=== PATIENT | male | born 2000 | race Caucasian/White ===

== ENCOUNTER 2024-10-04 14:26 | Emergency (ER) | payer OTHER, SELFPAY ==
--- NOTE | 2024-10-04 14:32 | ED_ITS ---
HPI - URI/Sore Throat General Chief Complaint: Upper Respiratory Infection Stated Complaint: flu like symptoms Time Seen by Provider: 10/04/24 14:31 Source: patient Mode of arrival: ambulatory Limitations: no limitations History of Present Illness HPI Narrative: Patient is a 24-year-old male who presents with cough, congestion, sore throat, fever, body aches, headache, fatigue, and nausea that started yesterday at 9:00 a.m.. Patient has taken [place] cold flu. Reports high his fever was 102 at 1:00 p.m. today. Denies any vomiting, diarrhea. Related Data Allergies Allergy/AdvReac Type Severity Reaction Status Date / Time No Known Allergies Allergy Verified 10/04/24 14:44 Review of Systems Review of Systems: All systems reviewed & are unremarkable except as noted in HPI and below Constitutional: Constitutional: Reports body ache(s), Denies chills, Reports fatigue, Reports fever(s), Reports headache(s), Denies malaise and Denies weakness Eyes: Eyes: Denies blurry vision, Denies itchy eyes and Denies loss of vision ENT: Denies otalgia, Denies headache(s), Reports nasal congestion, Denies sinus pain and Reports sore throat Cardiovascular: Cardiovascular: Denies chest pain, Denies irregular heart rhythm and Denies dyspnea Respiratory: Respiratory: Reports cough and Denies dyspnea Gastrointestinal: Gastrointestinal: Denies abdominal pain, Denies diarrhea, Reports nausea and Denies vomiting Musculoskeletal: Musculoskeletal: Denies back pain, Denies myalgias and Denies arthralgias Integumentary/Breasts: Skin/Breast: Denies pruritus and Denies rash Neurologic: Denies headache(s), Denies loss of vision and Denies weakness Psychiatric: Psychiatric: Reports no additional psychiatric complaints Endocrine: Endocrine: Denies fatigue Allergic/Immunologic: Allergic/Immunologic: Denies itchy eyes PMFSH Comments At time of signature, agree with nursing past medical, surgical, social and family history. There is no relevant family history pertinent to the presenting complaint. Exam Const: General: cooperative, healthy appearing, comfortable, no acute distress and well nourished Nutritional Appearance: well nourished Orientation/consciousness: patient oriented x3 Limitations: no limitations HENMT: Head: normal to inspection, normocephalic and atraumatic Ears: hearing grossly normal bilaterally, external ears normal, TM's normal bilaterally, EAC's normal and no periauricular adenopathy Face/Nose/Sinus: Normal external nose present, Abnormal mucous membranes and turbinates present erythematous bilateral and diffuse, normal facial exam, sinuses nontender and face symmetric Face and sinus: normal facial exam, sinuses nontender and face symmetric Mouth: Yes Normal oral and palatal mucosa present, Yes lip normal, Yes tongue normal, Yes Normal salivary glands and ducts present, Yes oropharynx normal and Yes moist mucous membranes Teeth and gingiva: dentition normal Throat: posterior oropharynx normal, tonsils normal, uvula midline and postnasal drainage Eyes: General: appearance normal, both eyes and all related structures Alignment and Position: alignment normal and position normal Periorbital: periorbital findings normal Eyelids: eyelids normal Pupils: Equal, round and reactive pupils present Neck: Neck: normal visual inspection, full ROM, no lymphadenopathy and supple Chest: Chest palpation & inspection: normal inspection of the chest and normal palpation of entire chest wall Resp: Effort & Inspection: normal respiratory effort and able to speak in complete sentences Auscultation: clear to auscultation bilaterally, no crackles, no rales, no rhonchi and no wheezes Cardio: Rate: regular rate Rhythm: regular rhythm Heart sounds: S1 normal heart sound present and S2 normal heart sound present GI: Inspection: normal to inspection Skin: General skin exam: normal color and no rashes or lesions noted Neuro: General: patient oriented x3 and moves all extremities Cranial nerves: Yes Equal, round and reactive pupils present Speech: normal speech Gait exam (Neuro): Normal gait present Extrem: General: normal to inspection, full ROM and no edema Psych: Appearance: grossly normal and well kempt Mental Status: mental status grossly normal Speech and movement: Normal speech and movement present Affect: normal affect Attitude: cooperative Thought process: Normal thought process present Course Course Emergency Course: Discharge instructions reviewed with patient, as well as provided in writing per nursing staff. The instructions also include specific and strict return/GO TO THE ER as well as f/u information. All questions have been answered, and the patient deny any further questions with discharge and discharge plan. Portions of this record may have been created with voice recognition software Level of Care: Express Care Visit Vital Signs Vital signs: Vital Signs Temperature 36.9 C 10/04/24 14:42 Pulse Rate 90 10/04/24 14:42 Respiratory Rate 18 10/04/24 14:42 Blood Pressure 117/56 L 10/04/24 14:42 Pulse Oximetry 98 10/04/24 14:42 Oxygen Delivery Room Air 10/04/24 14:42 Temperature 36.9 C 10/04/24 14:42 Pulse Rate 90 10/04/24 14:42 Respiratory Rate 18 10/04/24 14:42 Blood Pressure 117/56 L 10/04/24 14:42 Pulse Oximetry 98 10/04/24 14:42 Oxygen Delivery Room Air 10/04/24 14:42 Reviewed MDM - URI/Sore Throat MDM Narrative Medical decision making narrative: Pt well hydrated appearing, in no respiratory distress, hemodynamically stable. Recommend supportive care. The patient is stable at time of discharge the clinical impression was discussed and the patient was given the opportunity to ask questions, which were addressed as completely as possible given the infor mation available at present. Anticipatory guidance and return to care precautions were discussed and the importance of primary care follow-up was stressed and encouraged. The patient voiced understanding of the plan, indications to return, and the need for follow-up. Differential diagnosis considered: Moon virus, strep pharyngitis, allergic rhinitis, upper respiratory tract infection, sinusitis, rhinosinusitis, nasopharyngitis. viral pharyngitis, otitis media, otitis externa, otitis effusion, foreign body, cerumen impaction, viral syndrome, and influenza.? Exam findings show no acute concerns or changes; patient is non-toxic appearing and is in no distress.? Patient is appropriate for outpatient treatment and follow- up.? Medical Records Attestation: I reviewed the patient's medical records. Lab Data Attestation: I reviewed the patient's lab results. Labs: Lab Results 10/04/24 Range/Units 15:08 POC Influenza A Ag Positive (Negative) POC Influenza B Ag Negative (Negative) POC SARS CoV-2 Ag Negative (Negative) POC Grp A Strep Screen Negative (Negative) Discharge Plan Discharge Clinical Impression: Influenza Patient Disposition: Home, Self-Care Condition: Stable Instructions: Influenza (ED) Additional Instructions: You are positive for influenza A. use Zofran as needed for nausea Your rapid strep swab was negative today at [facility]. A throat culture will be sent to the laboratory for further testing. If the test is positive, you will receive a phone call within 48 hours and an appropriate antibiotic will be initiated at that time. Your Covid is negative Your symptoms are likely due to a viral illness, which is not treated with antibiotics. Viral symptoms can be present for up to a few weeks. -For pain/fever, you may take: Tylenol 650-1000mg by mouth every 4-6 hours. Do not exceed 4000mg in 24 hours. Advil (Ibuprofen) 600 mg by mouth every 6 hours. Do not exceed 2400mg in 24 hours. 8 AM: Tylenol 11 AM: Ibuprofen 2 PM: Tylenol 5 PM: Ibuprofen 8 PM: Tylenol 11 PM: Ibuprofen 2 AM: Tylenol 5 AM: Ibuprofen -Antihistamine medication such as Benadryl/Zyrtec at night and Claritin/Rose during the day can help improve symptoms. -Use Flonase twice a day for 5 days then daily to help reduce the inflammation and dry up your sinuses. -You can also use Sudafed behind the pharmacy counter(12 or 24 hour). Be sure to drink plenty of water with these medications at least 8 ounces with every dose and it is important to drink 8 to 10 glasses of water per day. Water is a natural decongestant -Eat and drink things that are easy to swallow, like tea or soup, or popsicles. -Oral rinses such as: Salt water gargles and/or may use topical anesthetic (eg. Chloraseptic spray) or lozenges to relieve dryness or throat pain). -Frequent hand washing or hand certified neurodiagnostic technologist is one of the best ways to prevent spread of infection. -Using a vaporizer or humidifier at night will also help thin secretions and help with coughing up phlegm. -Follow up with primary care provider in 3-5 days if condition is not improving - For new or worsening symptoms go directly to the nearest ER Patient Language: Occitan Prescriptions: New ondansetron 4 mg tablet,disintegrating 4 mg PO Q6-8H PRN (Reason: nausea and vomiting) Qty: 7 0RF fluticasone propionate [Flonase Allergy Relief] 50 mcg/actuation spray,suspension 1 spray intranasal DAILY Qty: 16 0RF Rx Instructions: administer into each nostril Follow-up/Referrals: Sharon,GRACIE Moon [Primary Care Provider] - 3 Days Stand Alone Forms: Work/School Release IP Time of Disposition: 15:04
[2024-10-04 14:42] VITALS: BP 117/56; PULSE 90; RESP 18; TEMP 36.9; O2SAT 98
[2024-10-04 15:11] LABS: EDCOVIDSCREEN Negative (Negative); EDINFLUASCREEN Positive (Negative); EDINFLUBSCREEN Negative (Negative); EDSTREPNEGPOS1 Negative (Negative)
--- OUTSIDE RECORDS SUMMARY | 2024-10-08 10:44 | XMS_ITS | Encounter Summary ---
Author Organization [facility] Address [facility]. [place], [place] [id number] [place] [id number] Care Team Providers Care Floor Inspector Name Role Phone None, Provider Primary Care Provider Unavaila ble Encounter Details Date Type Department Care Team (Late st Contact Info) Description 07/02/2002 Abstract [facility] Conversion Md, Generic Conversion, Social History Tobacco Use Types Packs/Day Years Used Date Smoking Tobacco: Never Assessed Sex and Gender Information Value Date Recorded Sex Assigned at Not on file Legal Sex Male 7:49 PM CDT Gender Identity Not on file Sexual Orientation Not on file documented as of this encounter Plan of Treatment Not on file documented as of this encounter Visit Diagnoses Not on filedocumented in this encounter Additional Health Concerns Infection Onset Date Last Indicated Resolved Time COVID-19 Rule Out 08/19/2024 08/19/2024 08/19/2024 2:03 PM [employer] documented as of this encounter Care Teams Floor Inspector Relationship Specialty Start Date End Date None, Provider, PCP - General UNKNOWN PHYSICIAN SPECIALTY 08/19/24 documented as of this encounter
--- OUTSIDE RECORDS SUMMARY | 2024-10-08 10:44 | XMS_ITS | Clinical Summary ---
Author Organization [facility] Address [address] [place] [address]. [place] [address] [place] [address] Care Team Providers Care Women'S Basketball Coach Name Role Phone None, Provider MD Primary Care Provider Unavaila ble Allergies No known active allergies Medications No known medications Active Problems No known active problems Encounters Date Type Department Care Team Description 10/04/2024 Scan [facility] Scanned, [facility] (SCAN) 10/04/2024 Scan [facility] Scanned, [facility] (SCAN) 08/19/2024 4:55 PM [employer] - 08/19/2024 11:59 PM [employer] Hospital Encounter [facility] [address] [place], [place] [id number] Bianca Herrera, PA Discharge Disposition: Home or Self Care (Routine Discharge) 08/19/2024 1:40 PM [employer] Office Visit [facility] [address] [place] [phone] Bianca Herrera, PA Sore Throat (Body aches-getting worse, congestion, fever off and on, headache-x 4 days) 08/19/2024 Travel from Last 3 Months Family History Medical History Relation Comments Sleep Apnea Father Relation Status Comments Father Alive Mother Alive Social History Tobacco Use Types Packs/Day Years Used Date Smoking Tobacco: Never Passive Smoke Exposure: Never Smokeless Tobacco: Current Tobacco Cessation:Counseling Given: No Alcohol Use Standard Drinks/Week Comments Yes 0 (1 standard drink = 0.6 oz pur e alcohol) PHQ-2 Answer Date Recorded Patient Health Questionnaire-2 Score 0 08/19/2024 Sex and Gender Information Value Date Recorded Sex Assigned at Not on file Legal Sex Male 7:49 PM CDT Gender Identity Not on file Sexual Orientation Not on file Last Filed Vital Signs Vital Sign Reading Time Taken Comments Blood Pressure 130/77 08/19/2024 1:34 PM [employer] Pulse 65 08/19/2024 1:34 PM [employer] Temperature 36.4 ??C (97.6 ??F) 08/19/2024 1:34 PM CS T Respiratory Rate 20 08/19/2024 1:34 PM [employer] Oxygen Saturation 98% 08/19/2024 1:34 PM [employer] Inhaled Oxygen Concentration - - Weight 81.2 kg (179 lb) 08/19/2024 1:34 PM [employer] Height 190.5 cm (6' 3 ) 08/19/2024 1:34 PM [employer] Body Mass Index 22.37 08/19/2024 1:34 PM [employer] Plan of Treatment Health Maintenance Due Date Last Done Comments Annual Physical 2003 DTaP, Tdap and Td Vaccines (5 - Tdap) 2011 09/19/2001, 09/19/2001, 2000, Additional history exists HPV Vaccines (1 - Male 3-dose series) 2015 Hepatitis C 2018 COVID-19 Vaccine ( season) 2024 Influenza Adult (#1) 2024 PHQ-2 (Physician [place]) 08/19/2025 08/19/2024 Hepatitis B Vaccines Completed 04/29/2001, 2000, 2000 Pneumococcal Vaccine: Pediatrics (0 to 5 Years) and At-Risk Patients (6 to 64 Years) Aged Out 09/19/2001, 04/29/2001, 2000, Additional history exists No longer eligible based on patient's age to complete this topic Meningococcal B Vaccine Aged Out No l onger eligible based on patient's age to complete this topic Meningococcal Vaccine Aged Out No cristhian marianne eligible based on patient's age to complete this topic RSV Immunizations Under 20 Months Aged Out No longer eligible based on patient's age to complete this topic Procedures Procedure Name Priority Date/Time Associated Diagnosis Comments OUTSIDE LAB (SCAN ORDER) 10/04/2024 OUTSIDE LAB (SCAN ORDER) 10/04/2024 OUTSIDE LAB COVID-19 (SCAN ORDER) Routine 10/04/2024 CULTURE STREP A Routine 08/19/2024 1:58 PM [employer] Sore throat STREP A RAPID Routine 08/19/2024 Sore throat CORONAVIRUS (COVID-19) INFLUENZA A & B ANTIGEN IA PANEL Routine 08/19/2024 Suspected COVID-19 virus infection from Last 3 Months Results * OUTSIDE LAB COVID-19 (10/04/2024) CORONAVIRUS SARS COV 2 PCR (RESP) NOT DETECTED NOT DETECTED [facility] 10/04/2024 Result [employer] Scanned SCANNING Final Resu lt Performing Organization Address [facility] Co de Phone Number [facility] ONBASE * OUTSIDE LAB (SCAN ORDER) (10/04/2024) Only the most recent of2 resultswithin the time period is included. 10/04/2024 Result [facility] Scanned SCANNING Final Resu lt * CULTURE STREP A (08/19/2024 1:58 PM [employer]) SPEC DESCRIPTION THROAT 08/19/2024 4:56 PM [employer] [facility] SPECIAL REQUESTS NO SPECIAL REQUEST 08/19/2024 4:56 PM [employer] [facility] CULTURE RESULT NO STREPTOCOCCUS PYOGENES (GROUP A) ISOLATED 08/21/2024 9:11 AM [employer] [facility] THROAT SWAB / Unknown 08/19/2024 1:58 PM [employer] 08/19/2024 4:57 PM [employer]Trust Bianca BOWMAN MICROBIOLOGY - GENERAL ORDER MICKIE Final Result Performing Organization Address City/[facility]/ZIP Co de Phone Number [facility] [address] [place] [address], [place] [phone] [facility] [address] [place] [address], [place] [phone] * CORONAVIRUS (COVID-19) INFLUENZA A & B ANTIGEN IA PANEL (08/19/2024) CORONAVIRUS ANTIGEN IA NEGATIVE NEGATIVE [id number], [place] INFLUENZA A NEGATIVE NEGATIVE [id number], [place] INFLUENZA B NEGATIVE NEGATIVE [id number], [facility] Internal Control: VALID VALID [id number], [place] NASAL STRUCTURE / Unknown 08/19/2024 Bianca BOWMAN MICROBIOLOGY - GENERAL ORDER MICKIE Final Result [id number], [place] [address] [place] [address], [place] [phone] * STREP A RAPID (08/19/2024) RAPID STREP TEST NEGATIVE NEGATIVE [id number], [place] Internal Control: VALID VALID [id number], [place] STRUCTURE OF ANTERIOR PORTION OF NECK / Unknown 08/19/2024 Bianca BOWMAN MICROBIOLOGY - GENERAL ORDER MICKIE Final Result [id number], [place] [address] [place] [address], [place] [phone] from Last 3 Months Insurance [employer] Care Teams Women'S Basketball Coach Relationship Specialty Start Date End Date None, Provider, MD PCP - General UNKNOWN PHYSICIAN SPECIALTY 08/19/24
== END 2024-10-04 15:08 | disposition home or self-care (01) ==
PROVIDERS: Emergency Provider Nurse Practitioner Family; PCP Physician Assistant
DX: J10.1 Influenza due to other identified influenza virus with other respiratory manifestations (principal); Z20.822 Contact with and (suspected) exposure to COVID-19
CPT/HCPCS: 87081; 87426; 87804; 87880; 99203; G0463

== ENCOUNTER 2025-08-26 15:43 | Emergency (ER) | payer OTHER, SELFPAY ==
--- NOTE | ~2025-08-26 | XR_ITS ---
EXAMINATION: XR foot RT min 3V DATE: 08/26/2025 16:15 INDICATION: Injury TECHNIQUE: Right foot x-ray were obtained. COMPARISON: None. Impression: 1. No displaced fracture lucency. 2. No gross acute or aggressive bony or soft tissue process seen. No radiopaque foreign body seen. Reviewed, dictated and finalized at location A. POUND ATTENDANT Impression: 1. No displaced fracture lucency. 2. No gross acute or aggressive bony or soft tissue process seen. No radiopaque foreign body seen.
[2025-08-26 15:54] VITALS: BP 118/61; PULSE 72; RESP 20; TEMP 36.7; O2SAT 98
--- NOTE | 2025-08-26 16:14 | ED.LOWEXIN ---
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 No medication remedies attempted for symptoms. Pain increased with weight-bearing and movement. Denies any bruising, swelling, redness, numbness, or tingling. Related Data Home Medications ?Medication ?Instructions ?Recorded ?Confirmed ?Last Taken ?Type No Home Medications 08/26/25 08/26/25 Unknown History Allergies Allergy/AdvReac Type Severity Reaction Status Date / Time No Known Allergies Allergy Verified 08/26/25 16:03 Review of Systems Constitutional: Constitutional: Reports as per HPI, Denies chills, Denies fatigue, Denies fever(s) and Denies weakness Eyes: Eyes: Reports no additional eye complaints ENT: Reports system reviewed and no additional complaints, except as documented Cardiovascular: Cardiovascular: Reports no additional cardiovascular complaints Respiratory: Respiratory: Reports no additional respiratory complaints Gastrointestinal: Gastrointestinal: Reports no additional gastrointestinal complaints Genitourinary: Genitourinary: Reports no additional male genitourinary complaints Musculoskeletal: Musculoskeletal: Reports as per HPI, Reports arthralgias, Denies joint swelling and Denies muscle cramps Integumentary/Breasts: Skin/Breast: Reports as per HPI, Denies pruritus, Denies rash and Denies skin ulcer Neurologic: Reports as per HPI, Denies numbness and Denies weakness Psychiatric: Psychiatric: Reports no additional psychiatric complaints Endocrine: Endocrine: Reports no additional endocrine complaints Hematologic/Lymphatic: Hematologic/Lymphatic: Reports no additional hematologic/lymphatic complaints Allergic/Immunologic: Allergic/Immunologic: Reports no additional allergic/immunologic complaints Exam Const: General: healthy appearing and no acute distress Nutritional Appearance: well nourished Orientation/consciousness: patient oriented x3 Limitations: no limitations Resp: Effort & Inspection: normal respiratory effort Auscultation: clear to auscultation bilaterally Cardio: Rate: regular rate Rhythm: regular rhythm Skin: General skin exam: normal color Rashes: no rashes Wounds: no wounds Neuro: General: patient oriented x3 and moves all extremities Speech: normal speech Gait exam (Neuro): Normal gait present Extrem: Right lower extremity: foot Details: normal capillary refill, normal to inspection, tenderness Location: of the dorsal foot, toes with normal ROM, no edema, vascular exam Details: dorsalis pedis pulse present, posterior tibial pulse present and normal capillary refill and motor-sensory exam Details: two point discrimination normal; normal to inspection, ROM of toes normal, no unusual warmth, no abrasion, no laceration and no ecchymosis Psych: Mental Status: mental status grossly normal Affect: normal affect Attitude: cooperative Course Course Level of Care: Express Care Visit Vital Signs Vital signs: Vital Signs Temperature 98.1 F 08/26/25 15:54 Pulse Rate 72 08/26/25 15:54 Respiratory Rate 20 08/26/25 15:54 Blood Pressure 118/61 08/26/25 15:54 Pulse Oximetry 98 08/26/25 15:54 Oxygen Delivery Room Air 08/26/25 15:54 Temperature 98.1 F 08/26/25 15:54 Pulse Rate 72 08/26/25 15:54 Respiratory Rate 20 08/26/25 15:54 Blood Pressure 118/61 08/26/25 15:54 Pulse Oximetry 98 08/26/25 15:54 Oxygen Delivery Room Air 08/26/25 15:54 [facility] MDM Narrative Medical decision making narrative: X-rays ordered The patient was evaluated by myself in the express care. History is obtained from patient who is an independent historian and physical exam was performed. Available medical records were reviewed at this time. Exam findings show no acute concerns or changes; patient is non-toxic appearing and is in no distress. Patient is appropriate for outpatient treatment and follow-up. I have evaluated and discussed social determinants of health with the patient that could potentially impact subsequent diagnosis and treatment plans. Differential diagnosis and treatment plan were discussed with the patient. Patient agrees with discussion and after shared medical decision making agrees with plan of care. All questions were answered to the patient's satisfaction. Differential Diagnosis Differential Diagnosis: ankle fracture, foot fracture, ankle sprain, foot contusion, foot sprain Medical Records I have reviewed the following patient records and this information was taken into consideration when formulating the assessment and plan.: previous labs, previous hospitalizations and previous clinic visits Imaging Data Attestation: I personally reviewed and interpreted this imaging study as follows: My impression: no fracture or abnormality Radiologist's impression: ITS Impressions Foot X-Ray 08/26/25 16:16 Impression: 1. No displaced fracture lucency. 2. No gross acute or aggressive bony or soft tissue process seen. No radiopaque foreign body seen. Impression: 1. No displaced fracture lucency. 2. No gross acute or aggressive bony or soft tissue process seen. No radiopaque foreign body seen. Reviewed, dictated and finalized at location A. 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 Minimize activities that aggravate the condition The RICE protocol. Follow the RICE protocol as soon as possible after your injury: Rest your affected limb by not walking on it/not using this. Ice should be immediately applied to keep the swelling down. It can be used for 20 to 30 minutes, three or four times daily. Do not apply ice directly to your skin. Gentle range of motion exercises as tolerated. Compression dressings, bandages or lorena-wraps will immobilize and support your injured limb Elevate affected area above the level of your heart if possible as often as possible during the first 48 hours then as needed for increased swelling. Medication: Nonsteroidal anti-inflammatory drugs (NSAIDs) such as ibuprofen and naproxen can help control pain and swelling. Because they improve function by both reducing swelling and controlling pain, they are a better option for mild sprains than narcotic pain medicines. Please schedule a follow-up visit with your personal physician for further evaluation and treatment within 1week OR If your symptoms persist, change or worsen significantly before you can contact your personal physician then please, without delay, go to the emergency department for further evaluation. Patient Language: Guamanian Prescriptions: No Action No Home Medications Follow-up/Referrals: Sharon,GRACIE Moon [Primary Care Provider] Time of Disposition: 16:26
--- OUTSIDE RECORDS SUMMARY | 2025-08-26 19:08 | XMS_ITS | Encounter Summary ---
Author Organization [facility] Address [facility] [place] [address] Care Team Providers Care Container Shop Welder Name Role Phone None, Provider Primary Care Provider Unavaila ble Encounter Details Date Type Department Care Team (Late st Contact Info) Description 07/02/2002 Abstract [facility] Conversion Md, Generic Conversion, Social History Tobacco [...] Rule Out 08/19/2024 08/19/2024 08/19/2024 2:03 PM AIR TECHNICIAN documented as of this encounter Care Teams Container Shop Welder Relationship Specialty Start Date End Date None, Provider, PCP - General UNKNOWN PHYSICIAN SPECIALTY 08/19/24 documented as of this encounter
--- OUTSIDE RECORDS SUMMARY | 2025-08-26 19:08 | XMS_ITS | Clinical Summary ---
Author Organization [facility] Address [facility] [place] [address] Care Team Providers Care Roving Or Yarn Color Checker Name Role Phone None, Provider MD Primary Care Provider Unavaila ble Allergies No known active allergies Medications No known medications Active Problems No known active problems Family History Medical History Relation Comments Sleep [...] Comments Blood Pressure 130/77 08/19/2024 1:34 PM PIANO REFINISHER Pulse 65 08/19/2024 1:34 PM PIANO REFINISHER Temperature 36.4 C (97.6 F) 08/19/2024 1:34 PM PIANO REFINISHER Respiratory Rate 20 08/19/2024 1:34 PM PIANO REFINISHER Oxygen Saturation 98% 08/19/2024 1:34 PM PIANO REFINISHER Inhaled Oxygen Concentration - - Weight 81.2 kg (179 lb) 08/19/2024 1:34 PM PIANO REFINISHER Height 190.5 cm (6' 3) 08/19/2024 1:34 PM PIANO REFINISHER Body Mass Index 22.37 08/19/2024 1:34 PM PIANO REFINISHER Plan of Treatment Health Maintenance Due Date Last Done Comments Annual Physical 2003 DTaP, Tdap and Td Vaccines (5 - Tdap) 2011 09/19/2001, 09/19/2001, 2000, Additional history exists HPV Vaccines (1 - Male 3-dose series) 2015 Hepatitis C 2018 PHQ-2 (Physician [place]) 09/16/2024 08/19/2024 COVID-19 Vaccine (1 - season) 2025 Influenza Adult (#1) 2025 Hepatitis B Vaccines Completed 04/29/2001, 2000, 2000 Pneumococcal Vaccine: Pediatrics (0 to 5 Years) and At-Risk Patients (6 to 49 Years) Aged Out 09/19/2001, 04/29/2001, 2000, Additional history exists No longer eligible based on patient's age to complete this topic Hepatitis A Vaccines Aged Out No long er eligible based on patient's age to complete this topic Meningococcal B Vaccine Aged Out No l onger eligible based on patient's age to complete this topic Meningococcal Vaccine Aged Out No cristhian marianne eligible based on patient's age to complete this topic RSV Immunizations Under 20 Months Aged Out No longer eligible based on patient's age to complete this topic Insurance Care Teams Roving Or Yarn Color Checker Relationship Specialty Start Date End Date None, Provider, MD PCP - General UNKNOWN PHYSICIAN SPECIALTY 08/19/24
== END 2025-08-26 16:31 | disposition home or self-care (01) ==
PROVIDERS: Emergency Provider Nurse Practitioner Family; PCP Physician Assistant
DX: S93.601A Unspecified sprain of right foot, initial encounter (principal); W11.XXXA Fall on and from ladder, initial encounter
CPT/HCPCS: 73630; 99213; G0463